=== PATIENT | male | born 1960 | race Caucasian/White ===

== ENCOUNTER → 2017-12-09 13:51 | Outpatient (CLI) | payer OTHER, SELFPAY | DX: C61 Malignant neoplasm of prostate (principal) | CPT/HCPCS: 36415; 84153 ==

== ENCOUNTER → 2018-01-05 15:05 | Outpatient (CLI) | payer OTHER, SELFPAY ==
[2018-01-05 15:17] LABS: Bacteria Urine None Seen; WBC Urine None Seen (0-5/HPF)
[2018-01-05 15:22] LABS: Appearance Urine UA CLEAR; Bilirubin Urine UA NEGATIVE (NEGATIVE); Color Urine UA YELLOW; Glucose Urine UA NEGATIVE (Normal); Ketones Urine UA NEGATIVE (NEGATIVE); Leukocyte Esterase Urine UA NEGATIVE (NEGATIVE); Nitrite Urine UA Negative (Negative); Occult Blood Urine UA TRACE-LYSED (Negative); Protein Urine UA NEGATIVE (Negative); Specific Gravity Urine UA >=1.030 (1.000-1.035); Urobilinogen Urine UA 0.2 E.U./dL (0.2); pH Urine UA 5.5 (4.5-8.0)
[2018-01-05 15:37] LABS: RBC Urine 0-1/HPF (0-5/HPF)
[2018-01-05 15:38] LABS: Culture Indicated Urine Cult Not Indicated; Mucus Urine 1+ (Negative)
== END ==
PROVIDERS: Visit Provider Radiology Radiation Oncology
DX: C61 Malignant neoplasm of prostate (principal)
CPT/HCPCS: 81001

== ENCOUNTER → 2018-07-06 11:54 | Outpatient (CLI) | payer OTHER, SELFPAY ==
[2018-07-06 13:35] LABS: Prostate Specific Antigen 0.739 ng/mL (0.10-4.00)
== END ==
PROVIDERS: Visit Provider Radiology Radiation Oncology
DX: C61 Malignant neoplasm of prostate (principal)
CPT/HCPCS: 36415; 84153

== ENCOUNTER 2018-09-24 16:35 | Emergency (ER) | payer OTHER, SELFPAY ==
[2018-09-24 16:40] VITALS: BP 155/109; PULSE 109; RESP 20; TEMP 36.9; O2SAT 99; BMI 25.8
[2018-09-24] MEDS: GLUCAGON,HUMAN RECOMBINANT 1 MG/ML VIAL IV (17:31)
[2018-09-24] MEDS: SODIUM CHLORIDE 0.9% 1,000 ML 1000 ML IV (18:03)
[2018-09-24 19:06] VITALS: BP 164/94; PULSE 87; RESP 18; O2SAT 99
--- NOTE | 2018-09-25 04:30 | ED.ABDPAIN ---
HPI - Abdominal Pain General Chief Complaint: Abdominal Pain Stated Complaint: states hot dog stuck in throat x 2 days Time Seen by Provider: 09/24/18 18:00 Source: patient and family Mode of arrival: ambulatory Limitations: no limitations History of Present Illness HPI narrative: 50-year-old male with history of esophageal stricture and prostate cancer presents to the emergency department a chief complaint a piece of hot dog which has been stuck since yesterday. Since then he has been unable to keep any food or drink down. He has had this happened on multiple occasions. Most recent episode was in 2014 when he was seen and treated here by 1 of our general surgeons. He ended up following with [facility] and subsequent esophageal dilation. He's got no throat pain, chest pain or abdominal pain. He has had no cough or shortness of breath. Denies any fever chills Onset (ago): day(s) Radiation: none Relieving factors: nothing Exacerbating factors: nothing Related Data Home Medications Medication Instructions Recorded Confirmed omeprazole 40 mg PO QDAY #0 08/09/16 Allergies Allergy/AdvReac Type Severity Reaction Status Date / Time venom-honey bee Allergy Unknown Verified 09/24/18 16:56 [bee venom (honey bee)] Review of Systems Constitutional Denies chills, Denies fever(s), Denies lethargy and Denies weakness Eyes Denies change in vision, Denies eye discharge, Denies irritation and Denies loss of vision ENT Ears, Nose, Mouth, and Throat: Denies change in voice, Denies neck pain and Denies sore throat Comments: foreign body sensation Cardiovascular Denies chest pain, Denies irregular heart rhythm, Denies lightheadedness, Denies palpitations, Denies dyspnea, Denies dyspnea on exertion and Denies orthopnea Respiratory Denies cough, Denies dyspnea, Denies dyspnea on exertion and Denies wheezing Gastrointestinal Gastrointestinal: Denies abdominal pain, Denies change in bowel habits, Denies diarrhea, Reports nausea and Reports vomiting Genitourinary Denies hematuria, Denies flank pain, Denies urinary incontinence and Denies urinary urgency Musculoskeletal Denies neck pain Integumentary/Breasts Denies pruritus, Denies erythema, Denies rash and Denies wounds Neurologic Denies confusion, Denies loss of vision and Denies weakness Psychiatric Denies anxiety, Denies confusion, Denies depression, Denies homicidal ideation and Denies suicidal ideation Endocrine Denies palpitations Hematologic/Lymphatic Denies easy bruising Allergic/Immunologic Denies wheezing Exam Narrative Exam Narrative: GENERAL: 50-year-old male appears stated age. He is in mild distress holding an emesis Eligio is a well-nourished, well-developed patient, in mild distress. HEAD: Atraumatic. Normocephalic. No temporal or scalp tenderness. EYES: Pupils equal round and reactive. Extraocular motions intact. No scleral icterus. No injection or drainage. ENT: Nose without bleeding, purulent drainage or septal hematoma. Throat without erythema, tonsillar hypertrophy or exudate. Uvula midline. Airway patent. NECK: Trachea midline. No JVD or lymphadenopathy. Supple, nontender, no meningeal signs. CARDIOVASCULAR: Regular rate and rhythm without murmurs, gallops, or rubs. RESPIRATORY: Clear to auscultation. Breath sounds equal bilaterally. No wheezes, rales, or rhonchi. GASTROINTESTINAL: Abdomen soft, non-tender, nondistended. No hepato-splenomegaly, or palpable masses. No guarding. EXTREMITIES: No clubbing, cyanosis, or edema. No joint tenderness, effusion, or edema noted. BACK: Nontender without deformity or crepitance. No flank tenderness. NEURO: AOx3. SKIN: No rash or erythema. Initial Vital Signs Initial Vital Signs: Vital Signs Temperature 98.4 F 09/24/18 16:40 Pulse Rate 109 H 09/24/18 16:40 Respiratory Rate 20 09/24/18 16:40 Blood Pressure 155/109 H 09/24/18 16:40 Pulse Oximetry 99 09/24/18 16:40 Course Orders Ordered: Discontinued Medications Glucagon (Glucagen) 1 mg IV NOW ONE Stop: 09/24/18 17:19 Last Admin: 09/24/18 17:31 Dose: 1 mg Sodium Chloride (Normal Saline 0.9%) 1,000 mls @ 1,000 mls/hr IV BOLUS ONE Stop: 09/24/18 19:01 Last Admin: 09/24/18 18:03 Dose: 1,000 mls/hr Reevaluation(s) Reevaluation #1: patient given glucagon followed closely by billy sharma and is able to pass the food bolus and able to drink without difficulty Discharge Plan Departure Patient Disposition: Home Clinical Impression: Distal esophageal obstruction due to foreign body Discharge Date/Time: 09/24/18 19:08 Interventions: ED Discharge Assessment Last Done: 09/24/18 19:06 Instructions: DI for Removal of Foreign Body From Esophagus Activity Restrictions/Additional Instructions: *You have been diagnosed with [ Esophageal foreign body resolved] *What to do: * continue to take medications as directed *Follow up with your Dr. Hoskins of [facility], call tomorrow for appointment *Return to ER if you should have any new, worsening or concerning symptoms Prescriptions: No Action omeprazole 20 MG tablet,delayed release (DR/EC) 40 mg PO QDAY Qty: 0 RF: 0 Referrals: Loy Cartwright MD [Primary Care Provider] - David Hoskins MD [Non-Staff] -
--- NOTE | 2018-11-01 11:57 | PC.NURSE ---
Late entry; Patient was given IV Bolus of 1000mL Normal Saline. Pt completed full bolus. Fluid started at 1903, Stop time 2002.
== END 2018-09-24 19:08 | disposition home or self-care (01) ==
PROVIDERS: Emergency Provider Emergency Medicine
DX: T17.228A Food in pharynx causing other injury, initial encounter (principal); K22.2 Esophageal obstruction
CPT/HCPCS: 96361; 96374; 99282; 99284; J1610

== ENCOUNTER 2020-01-21 08:21 | Day surgery (SDC) | payer OTHER, SELFPAY ==
[2020-01-21] VITALS (14 sets, daily range): BP systolic 143–183; BP diastolic 78–105; PULSE 86–110; RESP 12–24; TEMP 36.8–37.3; O2SAT 96–99; BMI 25.0
--- NOTE | 2020-01-21 08:34 | ED.SKABFB ---
HPI - Skin/Abscess/Foreign Bdy General Chief complaint: Skin/Abscess/Foreign Body Stated complaint: something stuck in esophagus Time Seen by Provider: 01/21/20 08:30 Source: patient Mode of arrival: Ambulatory Limitations: no limitations History of Present Illness HPI narrative: CC: History of acute dysphagia with an esophageal stricture food stuck in throat. HPI: The patient is a 59-year-old male who states that time something is stuck in his esophagus. He has a past history of food sticking in his esophagus. He has been seen by a independent insurance adjuster at [facility] an years ago had an esophageal stricture dilated. On Tuesday the patient was eating some homemade Esme them believes that a piece of chicken got stuck in his throat. Since then he has been unable to drink fluids or handle his own secretions. He has been gagging. He has been unable to take any flat Coke or pam zachary. He states that he is not able to swallow. He feels that he is becoming dehydrated and denies that he has had any vomiting. He denies that he has had any fever chills or sweats. He has not been coughing or short of breath with this. And he has had no urinary symptoms and no diarrhea. He states that the last time he was seen here they gave him an injection and he was able to swallow afterwards. The patient denies a history of diabetes mellitus congestive heart failure myocardial infarction COPD asthma. He does not smoke cigarettes does not use marijuana but does drink alcohol. He admits to history of hypertension. Related Data Home Medications Medication Instructions Recorded Confirmed propranolol 10 mg PO BID 01/21/20 01/21/20 verapamil 120 mg PO DAILY 01/21/20 01/21/20 Allergies Allergy/AdvReac Type Severity Reaction Status Date / Time venom-honey bee Allergy Unknown Verified 09/24/18 16:56 [bee venom (honey bee)] Review of Systems Review of Systems Narrative: His review of systems were all negative except for those mentioned in the history of present illness. Patient History Medical History Esophageal stricture (Inactive) HTN (hypertension) (Inactive) Social History household members: none Smoking Status: Never smoker alcohol intake: current Exam Narrative Exam Narrative: PHYSICAL EXAM: CONSTITUTIONAL: Awake, Alert, Oriented, Coherent, Cooperative in NAD. HEAD: AT/NC EENT: PERRL, FROM of eyes, . NOSE:No epistaxis or nasal drainage MOUTH:Oral mucosa is moist and pink, posterior pharynx is without erythema or exudate. NECK: Supple, no obvious JVD, Trachea is midline without stridor, no palpable LN. SPINE: Palpation of the cervical, Thoracic, Lumbar or Sacral spine reveals no gross deformity or tenderness. No CVA tenderness. THORAX: No deformity, or retractions. LUNGS: Clear, symmetrical breath sounds without respiratory distress. HEART: Normal heart tones, regular rhythm and rate without murmur. ABDOMEN: Soft, non-tender, no guarding, rebound, rigidity or palpable mass. EXTREMITIES: No edema, or calf tenderness SKIN: No rash, bruising,. NEURO: Awake, alert, oriented, conversive, cranial nerves II-XII are symmetrical , moves all 4 extremities and is ambulatory. MENTAL HEALTH: Does not appear anxious or depressed. Initial Vital Signs Initial Vital Signs: Vital Signs Temperature 99.2 F 01/21/20 08:29 Pulse Rate 95 H 01/21/20 08:29 Respiratory Rate 16 01/21/20 08:29 Blood Pressure 168/105 H 01/21/20 08:29 Pulse Oximetry 99 01/21/20 08:29 Course Course Course Narrative: 1057: The glucagon did not work. The patient given fluids is now coughing. I will call and discuss the patient with Dr. Fraire. He may need an EGD. And possible esophageal dilatation. 1127 Dr. Fraire called at [phone]: Sounds like Dr. Fraire is in surgery discussed the patient and he will see the patient for possible scope. Orders Ordered: Discontinued Medications Fentanyl (Sublimaze) 0 mcg IV Q5M PRN PRN Reason: Pain, Moderate (4-6) Glucagon (Glucagen) 1 mg IV NOW ONE Stop: 01/21/20 09:05 Last Admin: 01/21/20 09:50 Dose: 1 mg Documented by: EMPERATRIZ Sodium Chloride (Normal Saline 0.9%) 1,000 mls @ 1,000 mls/hr IV BOLUS ONE Stop: 01/21/20 10:11 Last Infusion: 01/21/20 12:10 Dose: 0 mls/hr Documented by: Admin: 01/21/20 09:40 Dose: 1,000 mls/hr Documented by: EMPERATRIZ Lactated Ringer's (Lactated Ringers) 1,000 mls @ 42 mls/hr IV CONT LUTHER Last Infusion: 01/21/20 14:52 Dose: 0 mls/hr Documented by: Admin: 01/21/20 13:42 Dose: 42 mls/hr Documented by: CATHERINE Lactated Ringer's (Lactated Ringers) 1,000 mls @ 42 mls/hr IV CONT LUTHER Ondansetron HCl (Zofran) 4 mg IV NOW PRN PRN Reason: Nausea And Vomiting Vital Signs Vital signs: Vital Signs - 8 hr 01/21/20 13:21 01/21/20 13:24 01/21/20 14:14 Temperature 98.2 F 98.8 F Pulse Rate 91 H 110 H 109 H Respiratory Rate 16 24 14 Blood Pressure 170/99 H 183/86 H 155/96 H Pulse Oximetry 99 98 98 01/21/20 14:19 01/21/20 14:38 Temperature Pulse Rate 104 H 87 Respiratory Rate 12 14 Blood Pressure 159/97 H 153/87 H Pulse Oximetry 98 96 MDM - Skin/Abscess/Foreign Bdy Lab Data Result diagrams: 01/21/20 09:32 01/21/20 09:32 Labs: Lab Results 01/21/20 01/21/20 01/21/20 Range/Units 09:32 09:32 09:32 WBC 12.7 H (4.5-11.0) X10^3/uL RBC 5.05 (4.5-5.9) X10^6/uL Hgb 16.0 (13.5-17.5) g/dL Hct 47.8 (41-53) % MCV 94.7 (80-100) fL MCH 31.8 (26-34) PG MCHC 33.5 (30-36) % RDW 12.4 (11.6-14.8) % Plt Count 215 (150-400) X10^3/uL Neut % (Auto) 86.7 H (50-75) % Lymph % (Auto) 6.7 L (25-40) % [place] % (Auto) 5.7 (3-14) % Eos % (Auto) 0.3 L (2-4) % Baso % (Auto) 0.6 (0-2) % Neut # (Auto) 95105 H (6095-3819) /uL Lymph # (Auto) 800 L (3338-8547) /uL [place]win # (Auto) 700 (0-900) /uL Eos # (Auto) 0 (0-450) /uL Baso # (Auto) 100 (0-100) /uL Sodium 138 (137-145) mmol/L Potassium 4.5 (3.4-5.1) mmol/L Chloride 101 (98-107) mmol/L Carbon Dioxide 30 (22-32) mmol/L BUN 14 (9-20) mg/dL Creatinine 0.93 (0.66-1.25) mg/dL Estimated GFR > 60.0 (>60) mL/min BUN/Creatinine Ratio 15.1 (6-22) Glucose 98 (70-100) mg/dL Calcium 10.0 (8.4-10.2) mg/dL Total Creatine Kinase 138 (55-170) U/L COVID-19 PCR (Negative) 01/21/20 Range/Units 12:12 WBC (4.5-11.0) X10^3/uL RBC (4.5-5.9) X10^6/uL Hgb (13.5-17.5) g/dL Hct (41-53) % MCV (80-100) fL MCH (26-34) PG MCHC (30-36) % RDW (11.6-14.8) % Plt Count (150-400) X10^3/uL Neut % (Auto) (50-75) % Lymph % (Auto) (25-40) % [place] % (Auto) (3-14) % Eos % (Auto) (2-4) % Baso % (Auto) (0-2) % Neut # (Auto) (8604-5322) /uL Lymph # (Auto) (6804-3881) /uL Irwin # (Auto) (0-900) /uL Eos # (Auto) (0-450) /uL Baso # (Auto) (0-100) /uL Sodium (137-145) mmol/L Potassium (3.4-5.1) mmol/L Chloride (98-107) mmol/L Carbon Dioxide (22-32) mmol/L BUN (9-20) mg/dL Creatinine (0.66-1.25) mg/dL Estimated GFR (>60) mL/min BUN/Creatinine Ratio (6-22) Glucose (70-100) mg/dL Calcium (8.4-10.2) mg/dL Total Creatine Kinase (55-170) U/L COVID-19 PCR Negative (Negative) Discharge Plan Departure Patient Disposition: Admitted to Surgery Clinical Impression: Facial spasm, Esophageal obstruction due to food impaction Discharge Date/Time: 01/21/20 14:00
--- NOTE | 2020-01-21 09:36 | PC.NURSE ---
Patient states the he was eating chicken soup and got something caught in his throat last night. He states that he was hacking up stuff last night and thinks that he got a lot of it out. His airway is clear, no sounds of wheezing, choking, coughing or gagging. He is alert and oriented and in no acute distress.
[2020-01-21] MEDS: SODIUM CHLORIDE 0.9% 1,000 ML 1000 ML IV (09:40)
[2020-01-21 09:43] LABS: Add Manual Diff / Slide Review NO; Basophils Absolute Auto 100 /uL (0-100); Basophils Percent Auto 0.6 % (0-2); Eosinophils Absolute Auto 0 /uL (0-450); Eosinophils Percent Auto 0.3 % (2-4); Hematocrit 47.8 % (41-53); Lymphocytes Absolute Auto 800 /uL (1100-4500); Lymphocytes Percent Auto 6.7 % (25-40); Mean Corpuscular HGB Conc 33.5 % (30-36); Mean Corpuscular Hemoglobin 31.8 PG (26-34); Mean Corpuscular Volume 94.7 fL (80-100); Monocytes Absolute Auto 700 /uL (0-900); Monocytes Percent Auto 5.7 % (3-14); Neutrophils Absolute Auto 11000 /uL (1500-7000); Neutrophils Percent Auto 86.7 % (50-75); Platelet Count 215 X10^3/uL (150-400); Red Blood Cell Count 5.05 X10^6/uL (4.5-5.9); Red Cell Distribution Width 12.4 % (11.6-14.8); White Blood Cell Count 12.7 X10^3/uL (4.5-11.0)
[2020-01-21 09:50] LABS: BUN Creatinine Ratio 15.1 (6-22); Blood Urea Nitrogen 14 mg/dL (9-20); Carbon Dioxide 30 mmol/L (22-32); Chloride 101 mmol/L (98-107); Creatine Kinase 138 U/L (55-170); Estimated Glomerular Filt Rate > 60.0 mL/min (>60); Glucose 98 mg/dL (70-100); HEMOLYSIS < 15 (0-50); Potassium 4.5 mmol/L (3.4-5.1); Sodium 138 mmol/L (137-145)
[2020-01-21] MEDS: GLUCAGON,HUMAN RECOMBINANT 1 MG/ML VIAL IV (09:50)
--- NOTE | 2020-01-21 11:26 | DI.RAD.S_ITS ---
PROCEDURE: XR CHEST 2V INDICATIONS: coughing after dysphagia r/o aspiration TECHNIQUE: 2 views of the chest were acquired. COMPARISON: None. FINDINGS: Surgical changes and devices: None. Lungs and pleura: Lungs are clear. No pleural effusions or pneumothorax. Mediastinum: Mediastinal contours are normal. Heart size is normal. Bones and chest wall: No suspicious bony abnormalities. Soft tissues appear unremarkable. IMPRESSION: No acute cardiopulmonary disease process. Dictated by: Kylah Modi MD, PhD on 01/21/2020 at 11:51 Approved by: Kylah Modi MD, PhD on 01/21/2020 at 11:52
--- NOTE | 2020-01-21 12:49 | P.HP_ITS ---
History of Present Illness History of Present Illness Date Patient Seen: 01/21/20 Time Patient Seen: 12:50 Chief complaint: something stuck in asaphogas Narrative: This is a 59-year-old man who who is seen in regards to an esophageal obstruction secondary to food impaction. Is a 20 year history of esophageal stricture requiring multiple dilations performed that various institutions who presents feeling that there is a foreign body within his throat. He says that he had chicken soup 2 days ago and subsequently been unable to pass piece of food in his distal esophagus. He came in to the ER because he had increasing throat pain and says that he is having hard time handling his secretions secondary to the obstruction. Trial of glucagon was performed in the ER without success. He takes no anticoagulant is or anti-platelet medication. Patient History Medical History Esophageal stricture (Inactive) HTN (hypertension) (Inactive) Family & Social History Safety & Behavioral: Feels Safe in Current Yes Environment Been Physically Hurt or No Threatened By a Person Meds Home Medications and Allergies Home Medications Medication Instructions Recorded Confirmed Type omeprazole 40 mg PO QDAY #0 08/09/16 History Allergies Allergy/AdvReac Type Severity Reaction Status Date / Time venom-honey bee Allergy Unknown Verified 09/24/18 16:56 [bee venom (honey bee)] Review of Systems Review of Systems Narrative: A 10 point review of systems is negative except as noted in the HPI Exam Vital Signs (past 8 hours): - 01/21/20 08:29 01/21/20 09:58 01/21/20 09:59 Temperature 99.2 F Pulse Rate 95 H 105 H 110 H Respiratory Rate 16 Blood Pressure 168/105 H 159/86 H Pulse Oximetry 99 96 98 01/21/20 10:00 01/21/20 11:00 01/21/20 11:30 Temperature Pulse Rate 98 H 97 H 86 Respiratory Rate Blood Pressure 143/78 H 167/102 H 157/103 H Pulse Oximetry 99 99 98 01/21/20 12:00 01/21/20 12:30 Temperature Pulse Rate 95 H 104 H Respiratory Rate Blood Pressure 174/82 H 170/89 H Pulse Oximetry 98 98 Oxygen Delivery Method Room Air Narrative Exam Narrative: General-no acute distress, adult male HEENT-moist mucous membranes, no scleral icterus Neck-supple, no lymphadenopathy Chest- non labored respirations, clear to auscultation bilaterally Cardiac-regular rate no peripheral edema Abdomen-soft, nontender, non distended Extremities-warm, well perfused Neurological-alert and oriented, no focal deficits Objective Labs Result Diagrams: 01/21/20 09:32 01/21/20 09:32 Labs: Laboratory Results - last 24 hr 01/21/20 01/21/20 01/21/20 09:32 09:32 09:32 WBC 12.7 H RBC 5.05 Hgb 16.0 Hct 47.8 MCV 94.7 MCH 31.8 MCHC 33.5 RDW 12.4 Plt Count 215 Neut % (Auto) 86.7 H Lymph % (Auto) 6.7 L [place] % (Auto) 5.7 Eos % (Auto) 0.3 L Baso % (Auto) 0.6 Neut # (Auto) 59569 H Lymph # (Auto) 800 L [place] # (Auto) 700 Eos # (Auto) 0 Baso # (Auto) 100 Sodium 138 Potassium 4.5 Chloride 101 Carbon Dioxide 30 BUN 14 Creatinine 0.93 Estimated GFR > 60.0 BUN/Creatinine Ratio 15.1 Glucose 98 Calcium 10.0 Total Creatine Kinase 138 Assessment & Plan Assessment & Plan narrative: 59-year-old man with an acute esophageal obst ruction secondary to food impaction in the setting of chronic esophageal stricture. Recommended that we proceed with a therapeutic esophagoduodenoscopy. I told him that the risks of the procedure include aspiration, myocardial infarction, esophageal perforation, recurrence. Given the acute esophageal obstruction I think the procedure would be most safely performed with an anesthesiologist for sedation measures. His questions have been answered he is in agreement with this plan.
[2020-01-21 13:12] LABS: COVID19 -Nasal RAPID Negative (Negative)
[2020-01-21] MEDS: LACTATED RINGERS 1,000 ML 42 ML IV (13:42)
--- NOTE | 2020-01-21 13:56 | PM.OP.ENDO ---
Operative Date/Time/Diagnoses Date of procedure: 01/21/20 Time of procedure: 13:56 Pre-op diagnosis: Esophageal obstruction secondary to food impaction Post-op diagnosis: same Procedure & Clinicians Study performed: Esophagoduodenoscopy Same procedure as scheduled: Yes Indications: 59-year-old man with a history of esophageal stricture presents with an esophageal obstruction secondary to food impaction. Surgeon: Mauro Fraire Procedure Notes SCOAP/Timeout: Performed Procedure in detail: Patient was placed supine on the table.. Time out was performed. Anesthesia was induced and he was intubated with an endotracheal tube. The scope was inserted into the mouth and advanced through the esophagus. In the distal esophagus there was a obstruction secondary to food impaction. With gentle pressure the impaction was moved out of the esophagus and into the stomach. The pylorus was intubated and the duodenum was normal. The scope was retroflexed within the stomach and there was no hiatal hernia. No ulcers, or gastritis. The scope was withdrawn into the esophagus the Z line was seen at 35 cm from the incisions. Stomach was desufflated and scope removed. Patient tolerated procedure well. Findings: other findings (Distal esophageal obstruction secondary to food impaction) Specimen(s): none sent Complications: none Impression: Esophageal obstruction Post-procedure Disposition: same day surgery
== END 2020-01-21 15:00 | disposition home or self-care (01) ==
LOC: ED 14:00 → OR 16:20
PROVIDERS: Emergency Provider Emergency Medicine; PCP Family Medicine; Visit Provider Surgery
PROC: 0DJ08ZZ Inspection of Upper Intestinal Tract, Via Natural or Artificial Opening Endoscopic (ICD-10-PCS; CPT 43235; principal; 2020-01-21 12:45)
DX: T18.128A Food in esophagus causing other injury, initial encounter (principal); K22.2 Esophageal obstruction; E11.9 Type 2 diabetes mellitus without complications; I50.9 Heart failure, unspecified; I25.2 Old myocardial infarction; J44.9 Chronic obstructive pulmonary disease, unspecified; Z11.59 Encounter for screening for other viral diseases
CPT/HCPCS: 43247; 36415; 71046; 80048; 82550; 85025; 87635; 96361; 96374; 99284; J0330; J1610; J2704; J3010